=== PATIENT | female | born 1980 | race Caucasian/White ===

== ENCOUNTER 2016-11-04 15:29 | Outpatient (CLI) | payer OTHER ==
--- NOTE | 2016-11-04 16:37 | DIAGNOSTIC IMAGING REPORT ---
PROCEDURE: XR HAND 3 OR 4 VIEWS - RIGHT INDICATION: Right hand injury. TECHNIQUE: Four views. COMPARISON: None. FINDINGS: Osseous structures and joint spaces are normal. IMPRESSION: 1. Normal right hand.
== END 2016-11-04 23:00 ==
LOC: XR SRH 15:29
DX: S60.221A Contusion of right hand, initial encounter (principal)